=== PATIENT | female | born 1985 | race Two or more races ===

== ENCOUNTER 2016-09-08 09:35 | Emergency (ER) | payer OTHER ==
[2016-09-08 09:47] VITALS: RESP 18
--- NOTE | 2016-09-08 10:26 | EDPHY ---
H & P Time Seen by Provider: 09/08/16 09:59 HPI/ROS: HPI Left knee injury. 30-year-old female by private vehicle with her friend. She was at work yesterday. She was at a [employer]. 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 She complains of isolated left knee pain. She reports that she also hit her right knee but this is not bothering her as much at this time. She is able to bear weight. She denies any loss of sensation or weakness in her lower extremities. She did not hit her head. No neck pain. No other complaints. ROS: Constitutional: No fever, no chills. No weakness. Musculoskeletal: No back pain. No neck pain. As above. No other extremity pain. Skin: No rashes. No lacerations or abrasions. Neurological: No headache. No focal weakness or altered sensation. Past medical history: Ear and eye surgery. Breast reduction. Social history: Here with a friend. Nonsmoker. As above. Physical Exam: General Appearance: Alert, no distress. This patient is responding to questions appropriately and in full sentences. This patient appears well- hydrated and well-nourished. Head: Normocephalic atraumatic. Face: Facial bones are stable on palpation. Eyes: Pupils equal and round and reactive to light, no pallor or injection. No lid erythema or edema. Neurological: Motor sensory function is intact. Cranial nerves are normal. Cerebellar function intact. Skin: Warm and dry, no rashes. No lacerations, abrasions or contusions. Musculoskeletal: Neck is supple and nontender. Left knee examination: Obese habitus but no gross evidence of effusion. She has a small area of superficial ecchymosis over the anterior proximal aspect of the patella. The left knee joint is stable to valgus and varus stress testing as well as anterior and posterior drawer testing. No significant soft tissue swelling or bony deformity noted on palpation of the knee. The left lower extremity is neurovascularly intact. Right knee examination: Normal. No physical evidence of trauma. No effusion. Right lower extremity is neurovascularly intact. Right knee joint is stable to valgus and varus stress testing as well as anterior and posterior drawer testing. Extremities are symmetrical, full range of motion. All joints in the bilateral upper and bilateral lower extremities range without pain or impingement. No tenderness on palpation of the long bones in the bilateral upper and bilateral lower extremities. Psychiatric: No agitation. No depression. Database: EKG: Imaging: Left knee x-ray series: Degenerative changes noted. No acute fracture, subluxation, dislocation. Interpreted by me. Procedures: Emergency department course: Patient took 400 mg of ibuprofen prior to arrival. She was sent for x-rays from triage. I reviewed the results of her x-rays with her. She feels comfortable ambulating on her left knee. I discussed providing her with crutches or a knee immobilizer. She does not want this. Follow-up and return to emergency department precautions were reviewed with her. All of her questions were answered. She was discharged in good condition with her friend. Differential Diagnosis: The differential diagnosis on this patient includes but is not limited to left knee contusion. Ligamentous injury of the knee, fracture, subluxation, dislocation, other significant traumatic injury unlikely. This represents a partial list of diagnoses considered. These considerations are based on history , physical exam, past history, reassessment and diagnostic testing. Smoking Status: Current some day smoker Constitutional: Initial Vital Signs Temperature (C) 36.7 C 09/08/16 09:45 Heart Rate 70 09/08/16 09:45 Respiratory Rate 18 09/08/16 09:45 Blood Pressure 112/76 09/08/16 09:45 O2 Sat (%) 98 09/08/16 09:45 O2 Delivery Mode Room Air Allergies/Adverse Reactions: codeine Allergy (Verified 09/08/16 09:45) Penicillins Allergy (Verified 09/08/16 09:45) Home Medications: Medication Instructions Recorded NK [No Known Home Meds] 09/08/16 Medical Decision Making - Diagnostics Imaging Results: Imaging Impressions Knee X-Ray 09/08/16 09:45 Impression: Degenerative changes; however, there is no acute osseous abnormality identified. A suprapatellar joint effusion is suspected. If there is further clinical concern regarding the patient's symptoms, consider MR imaging. Departure - Departure Disposition: Home, Routine, Self-Care Clinical Impression: Contusion of left knee Condition: Good Instructions: Knee Pain (ED), Contusion in Adults (ED) Additional Instructions: Read and follow provided instructions. Follow-up with your primary care physician in 1-2 days for re-evaluation as needed. Ibuprofen dosin mg every 6 hours with meals for the next 3 days only. Weightbear on your left knee as tolerated. Avoid any strenuous activity which exacerbates your pain. Return to the emergency department for worsening pain, swelling, discoloration, numbness or weakness or other serious concerns. Referrals: [facility] [Other] - As per Instructions
[2016-09-08 10:35] VITALS: BP 109/71; PULSE 74; TEMP 98.2; O2SAT 96
== END 2016-09-08 10:41 | disposition home or self-care (01) ==
LOC: CED 09:35
DX: S80.02XA Contusion of left knee, initial encounter (principal); F17.200 Nicotine dependence, unspecified, uncomplicated; W01.198A Fall on same level from slipping, tripping and stumbling with subsequent striking against other object, initial encounter; Y92.69 Other specified industrial and construction area as the place of occurrence of the external cause; Y99.0 Civilian activity done for income or pay; Y93.89 Activity, other specified
CPT/HCPCS: 73564-PO